=== PATIENT | female | born 1935 | race Caucasian/White ===

== ENCOUNTER 2020-01-19 22:40 | Inpatient (IN) ==
[2020-01-20] MEDS ORDERED: ONDANSETRON 4 MG/2 ML VIAL IV STA (02:07)
[2020-01-20] MEDS ORDERED: NITROGLYCERIN 2% OINT 1 INCH/GM PACK TOP STA (02:07)
[2020-01-20] MEDS ORDERED: ASPIRIN 325 MG TABLET PO STA (02:07)
[2020-01-20 02:19] LABS: Basophils % 0.1 % (0.0-0.8); Eosinophils # 0.3 10*3/uL (0.0-0.87); Hematocrit 42.3 VOL% (35.7-47.0); Hemoglobin 14.2 GM/DL (12.0-16.0); Immature Granulocytes % 0.3 %; Immature Granulocytes Absolute 0.04 #; Lymphocytes # 1.6 10*3/uL (1.4-4.0); Lymphocytes % 11.7 % (21.3-54.2); Mean Corpuscular HGB Conc 33.6 GM/DL (32-36); Mean Corpuscular Volume 91.4 FL (87-102); Mean Platelet Volume 9.8 FL (9.6-12.0); Monocytes % 5.5 % (1.7-12.7); Neutrophils % 80.4 % (38.7-73.9); Platelet Count 152 T/CUMM (130-400); Red Blood Count 4.63 MC/CUMM (3.8-5.5); Red Cell Distribution Width 11.9 % (9.3-17.3); White Blood Count 13.9 T/CUMM (4-12)
[2020-01-20 02:21] LABS: PT Patient Result 11.1 SECS (9.8-11.9)
[2020-01-20 02:39] LABS: Albumin 3.5 G/DL (3.4-5.0); Bilirubin,Total 0.9 MG/DL (0.2-1.0); Calcium 8.9 MG/DL (8.5-10.1); Osmolality,Calculated 286.3 MOS/KG (273-304); Potassium 3.6 MMOL/L (3.5-5.1); Total Protein 7.1 G/DL (6.4-8.3)
[2020-01-20] MEDS ORDERED: MORPHINE 4 MG/1 ML VIAL ONE (02:47)
[2020-01-20] MEDS ORDERED: MORPHINE 4 MG/1 ML VIAL IV STA (02:51)
[2020-01-20] MEDS ORDERED: ONDANSETRON 4 MG/2 ML VIAL IV PRN (03:52)
[2020-01-20] MEDS ORDERED: INFLUENZA VIRUS VACCINE 0.5 ML SYRINGE IM ONE (06:45)
[2020-01-20 07:43] LABS: Calcium 8.4 MG/DL (8.5-10.1); Osmolality,Calculated 279.7 MOS/KG (273-304); Potassium 4.2 MMOL/L (3.5-5.1)
[2020-01-20] MEDS ORDERED: PANTOPRAZOLE 40 MG TABLET PO SCH (09:00)
[2020-01-20] MEDS ORDERED: ENOXAPARIN 40 MG/0.4 ML SYRINGE SUBCUT SCH (09:00)
[2020-01-20] MEDS: PIPERACILLIN/TAZOBACTAM 3,375 MG in SODIUM CHLORIDE 0.9% 100 ML IV SCH ×2 (09:28→16:41)
[2020-01-20] MEDS: LACTATED RINGERS 1,000 ML IV SCH (11:15)
[2020-01-20] MEDS ORDERED: MORPHINE 4 MG/1 ML VIAL IV PRN ×2 (11:19)
[2020-01-20] MEDS: lisinopriL 10 MG TABLET PO SCH ×2 (11:26→21:08)
[2020-01-20] MEDS: OMEGA 3 ACID ETHYL ESTERS 1 GM CAPSULE PO SCH ×2 (11:26→21:09)
[2020-01-20] MEDS: MAGNESIUM CHLORIDE 64 MG TABLET PO SCH (11:26)
[2020-01-20] MEDS: EZETIMIBE 10 MG TABLET PO SCH (21:08)
[2020-01-20] MEDS: ENOXAPARIN 40 MG/0.4 ML SYRINGE SUBCUT SCH (21:08)
[2020-01-20] MEDS: ASPIRIN EC 81 MG TABLET PO SCH (21:08)
[2020-01-20] MEDS: POTASSIUM CHLORIDE 20 MEQ TABLET PO SCH (21:08)
[2020-01-20] MEDS: CHOLECALCIFEROL 1,000 UNIT TABLET PO SCH (21:08)
[2020-01-20] MEDS: METOPROLOL TARTRATE 25 MG TABLET PO SCH (21:08)
[2020-01-20] MEDS: SIMVASTATIN 40 MG TABLET PO SCH (21:08)
[2020-01-21] MEDS: LACTATED RINGERS 1,000 ML IV SCH ×3 (00:31→23:30)
[2020-01-21] MEDS: PIPERACILLIN/TAZOBACTAM 3,375 MG in SODIUM CHLORIDE 0.9% 100 ML IV SCH ×3 (01:27→16:44)
[2020-01-21] MEDS: LEVOTHYROXINE 50 MCG TABLET PO SCH (06:03)
[2020-01-21 06:16] LABS: Basophils % 0.3 % (0.0-0.8); Eosinophils # 0.3 10*3/uL (0.0-0.87); Eosinophils % 3.2 % (0.00-10.9); Hematocrit 36.3 VOL% (35.7-47.0); Immature Granulocytes % 0.5 %; Immature Granulocytes Absolute 0.04 #; Lymphocytes # 1.7 10*3/uL (1.4-4.0); Lymphocytes % 19.5 % (21.3-54.2); Mean Corpuscular HGB Conc 33.6 GM/DL (32-36); Mean Corpuscular Volume 91.4 FL (87-102); Mean Platelet Volume 10.4 FL (9.6-12.0); Monocytes % 8.2 % (1.7-12.7); Neutrophils % 68.3 % (38.7-73.9); Platelet Count 137 T/CUMM (130-400); Red Blood Count 3.97 MC/CUMM (3.8-5.5)
[2020-01-21 06:19] LABS: Hemoglobin 12.2 GM/DL (12.0-16.0); White Blood Count 8.8 T/CUMM (4-12)
[2020-01-21 06:37] LABS: Albumin 2.8 G/DL (3.4-5.0); Bilirubin,Total 1.8 MG/DL (0.2-1.0); Calcium 8.4 MG/DL (8.5-10.1); Osmolality,Calculated 283.1 MOS/KG (273-304); Potassium 3.6 MMOL/L (3.5-5.1); Total Protein 5.7 G/DL (6.4-8.3)
[2020-01-21 06:49] LABS: Hypochromasia Slight; Microcytosis Slight
[2020-01-21] MEDS: POTASSIUM CHLORIDE 20 MEQ TABLET PO SCH ×2 (09:07→20:59)
[2020-01-21] MEDS: MAGNESIUM CHLORIDE 64 MG TABLET PO SCH (09:07)
[2020-01-21] MEDS: OMEGA 3 ACID ETHYL ESTERS 1 GM CAPSULE PO SCH ×2 (09:08→20:59)
[2020-01-21] MEDS: lisinopriL 10 MG TABLET PO SCH ×2 (09:08→20:59)
[2020-01-21] MEDS: ASPIRIN EC 81 MG TABLET PO SCH (20:58)
[2020-01-21] MEDS: METOPROLOL TARTRATE 25 MG TABLET PO SCH (20:59)
[2020-01-21] MEDS: CHOLECALCIFEROL 1,000 UNIT TABLET PO SCH (20:59)
[2020-01-21] MEDS: EZETIMIBE 10 MG TABLET PO SCH (20:59)
[2020-01-21] MEDS: SIMVASTATIN 40 MG TABLET PO SCH (20:59)
[2020-01-21] MEDS: ENOXAPARIN 40 MG/0.4 ML SYRINGE SUBCUT SCH (21:04)
[2020-01-22] MEDS: PIPERACILLIN/TAZOBACTAM 3,375 MG in SODIUM CHLORIDE 0.9% 100 ML IV SCH ×2 (01:31→08:25)
[2020-01-22 05:57] LABS: Basophils % 0.4 % (0.0-0.8); Eosinophils # 0.6 10*3/uL (0.0-0.87); Eosinophils % 7.6 % (0.00-10.9); Hematocrit 37.3 VOL% (35.7-47.0); Hemoglobin 12.2 GM/DL (12.0-16.0); Immature Granulocytes % 0.5 %; Immature Granulocytes Absolute 0.04 #; Lymphocytes # 1.6 10*3/uL (1.4-4.0); Lymphocytes % 20.2 % (21.3-54.2); Mean Corpuscular HGB Conc 32.7 GM/DL (32-36); Monocytes % 8.9 % (1.7-12.7); Neutrophils % 62.4 % (38.7-73.9); Platelet Count 139 T/CUMM (130-400); Red Blood Count 4.01 MC/CUMM (3.8-5.5); Red Cell Distribution Width 11.8 % (9.3-17.3); White Blood Count 8.1 T/CUMM (4-12)
[2020-01-22 06:13] LABS: Calcium 8.8 MG/DL (8.5-10.1); Osmolality,Calculated 282.3 MOS/KG (273-304); Potassium 4.6 MMOL/L (3.5-5.1)
[2020-01-22] MEDS: LEVOTHYROXINE 50 MCG TABLET PO SCH (06:17)
[2020-01-22 07:25] LABS: Anisocytosis Slight; Macrocytosis Slight; Platelet Estimate Adequate
[2020-01-22 07:37] VITALS: BP 119/57
[2020-01-22] MEDS: lisinopriL 10 MG TABLET PO SCH (08:24)
[2020-01-22] MEDS: OMEGA 3 ACID ETHYL ESTERS 1 GM CAPSULE PO SCH (08:24)
[2020-01-22] MEDS: POTASSIUM CHLORIDE 20 MEQ TABLET PO SCH (08:24)
[2020-01-22] MEDS: MAGNESIUM CHLORIDE 64 MG TABLET PO SCH (08:24)
== END 2020-01-22 10:21 | disposition home or self-care (01) | DRG 392 ==
LOC: N.ED 22:40 → N.EDINP 22:40 → N.5E 01-20 06:31
PROVIDERS: ADMIT Internal Medicine; ATTEND Internal Medicine